=== PATIENT | female | born 1945 | race Caucasian/White ===

== ENCOUNTER 2023-06-19 11:30 | Emergency (ER) | payer MEDICARE, BC, SELFPAY ==
--- NOTE | ~2023-06-19 | XR_ITS ---
XR hand LT min 3V DATE: 06/19/2023 14:06 INDICATION: Redness, swelling, pain for 2 days TECHNIQUE: 3 views of left hand COMPARISON: None FINDINGS: There is soft tissue swelling of the second digit. There is mild polyarticular osteoarthritis, primarily involving the interphalangeal joints, most pron ounced at the distal interphalangeal joint of the third digit. No fracture, dislocation, periosteal reaction or bone destruction or erosive change is noted. IMPRESSION: Soft tissue swelling of second digit Mild polyarticular osteoarthritis Reviewed, dictated and finalized at location B.
--- NOTE | ~2023-06-19 | XR_ITS ---
XR finger 2nd LT min 2V DATE: 06/19/2023 14:06 INDICATION: Redness, swelling, pain for 2 days TECHNIQUE: 3 views of the left second digit COMPARISON: None FINDINGS: There is diffuse left second digit soft tissue swelling. No fracture, dislocation, periosteal reaction or bone destruction, erosive change or chondrocalcinosi s is noted. No radiopaque soft tissue foreign body or subcutaneous emphysema. Mild osteoarthritis at the second digit proximal and distal interphalangeal joints. IMPRESSION: Nonspecific soft tissue swelling of the second digit Mild osteoarthritis at the proximal and distal interphalangeal joints Reviewed, dictated and finalized at location B.
[2023-06-19 11:54] VITALS: BP 136/90; PULSE 82; RESP 18; TEMP 36.1; O2SAT 100
[2023-06-19 13:58] VITALS: BP 134/88; PULSE 88; RESP 19; O2SAT 100
--- NOTE | 2023-06-19 15:14 | ED.SKABFB ---
HPI - Skin/Abscess/Foreign Bdy General Chief complaint: Skin/Abscess/Foreign Body Stated complaint: R hand infection Time Seen by Provider: 06/19/23 14:05 History of Present Illness HPI narrative: This is a 77-year-old female with history gout who presents to the emergency department complaining left 2nd finger swelling and redness. The patient states this is present for the past 2 days with extension to the base of the finger over the of the hand. Patient states he was seen by her primary care doctor recently who said she had elevated uric acid and risk for recurrence of gout. Patient denies fevers, and chills or loss of sensation in the hand. She describes her pain dull, rated 3 to 4/10. The patient is right handed. She denies recent trauma or known breakage of her skin. Related Data Allergies Allergy/AdvReac Type Severity Reaction Status Date / Time Penicillins AdvReac Rash Verified 06/19/23 11:31 Review of Systems Review of Systems: CONSTITUTIONAL: Denies fever, chills, or sweats. CARDIOVASCULAR: Denies chest pain, palpitations, or edema. RESPIRATORY: Denies cough or dyspnea. GASTROINTESTINAL: Denies abdominal pain, nausea, vomiting, or diarrhea. GENITOURINARY: Denies dysuria or hematuria. SKIN: Denies rash or itching. MUSCULOSKELETAL: Left 2nd finger swelling and redness Denies back pain, joint pain, or myalgia. NEUROLOGIC: Denies headache, numbness, dizziness, or weakness. PSYCHIATRIC: Denies anxiety or depression. PMFSH Past Medical History Medical History Gout Surgical History Surgical History No significant past surgical history Social History Social History Smoking status: Never smoker Alcohol intake: never Substance use: never Exam Narrative: GENERAL: Well-developed, well-nourished, and in no acute distress. HEAD: Normocephalic, atraumatic. EYES: PERRLA and EOMI. CHEST: Clear to auscultation. No respiratory distress. No wheezes rales or rhonchi HEART: Regular rate and rhythm. No murmur heard. Normal peripheral pulses. EXTREMITIES: swelling and erythema noted extending over the entire left 2nd digit with some swelling over the dorsal aspect of the hand. At the distal medial aspect the 2nd finger, there is an area of white, solid tissue just under the epidermis, consistent with tophus. Range of motion of the left 2nd finger limited by pain and swelling. Otherwise normal range of motion of all extremities. No edema. SKIN: Warm, dry, no rash. NEURO: Alert and oriented x3. No focal deficit. Moving all 4 limbs spontaneously PSYCH: Normal mood and affect. Course Course Emergency Course: 15:15 - the patient's exam appears consistent with gouty flare, however cellulitis cannot be ruled out. X-ray shows soft tissue swelling without fracture or changes concerning for osteomyelitis. Will discharge with oral antibiotics, recommendation for continued use NSAIDs and follow-up with the patient's primary care doctor. I discussed the findings and recommendations with the patient. Discussed return and emergency precautions including signs/symptoms of septic arthritis and neurovascular compromise. The patient voiced understanding and agreement with the plan. All questions answered to her satisfaction. Vital Signs Vital signs: Vital Signs Temperature 97.0 F L 06/19/23 11:54 Pulse Rate 82 06/19/23 11:54 Respiratory Rate 18 06/19/23 11:54 Blood Pressure 136/90 06/19/23 11:54 Pulse Oximetry 100 06/19/23 11:54 Temperature 97.0 F L 06/19/23 11:54 Pulse Rate 88 06/19/23 13:58 Respiratory Rate 19 06/19/23 13:58 Blood Pressure 134/88 06/19/23 13:58 Pulse Oximetry 100 06/19/23 13:58 MDM - Skin/Abscess/Foreign Bdy MDM Narrative Medical decision making narrative: plan: Imaging, antibiotics, prim
== END 2023-06-19 15:28 | disposition home or self-care (01) ==
PROVIDERS: Emergency Provider Preventive Medicine Aerospace Medicine
DX: L03.114 Cellulitis of left upper limb (principal); M10.9 Gout, unspecified; M19.042 Primary osteoarthritis, left hand
CPT/HCPCS: 73130; 73140; 99283

== ENCOUNTER 2023-09-28 12:05 | Outpatient (CLI) | payer MEDICARE, BC, SELFPAY ==
--- NOTE | ~2023-09-28 | MM_ITS ---
EXAMINATION: MM screening anali BI w miranda HISTORY: Screening mammogram TECHNIQUE: Craniocaudal and mediolateral oblique 3-D tomosynthesis images were obtained and synthetic 2-D images were generated. CAD analysis was submitted and interpreted. COMPARISON: No prior mammogram is available for comparison at this institution. BREAST PARENCHYMAL COMPOSITION:Dense: The breasts are heterogeneously dense, which may obscure small masses. FINDINGS: No suspicious mass, calcification, or architectural distortion are identified in either devon ast to suggest malignancy. There has been no suspicious interval change. IMPRESSION: No mammographic evidence of malignancy. Recommend routine screening mammography in one year. BI-RADS Category 1: Negative Reviewed, dictated and finalized at location .
== END 2023-09-28 12:06 ==
PROVIDERS: PCP Family Medicine Sports Medicine; Visit Provider Family Medicine Sports Medicine
DX: Z12.31 Encounter for screening mammogram for malignant neoplasm of breast (principal)
CPT/HCPCS: 77063; 77067

== ENCOUNTER 2024-09-16 07:20 | Emergency (ER) | payer MEDICARE, BC, SELFPAY ==
--- NOTE | ~2024-09-16 | CT_ITS ---
CT head without contrast Indication: Head injury Technique: Serial scans were obtained through the brain without the administration of contrast. Dose reduction technique was used on this scan by utilizing automated exposure control and iterative recon struction technique. The dose-length product (DLP) was 605.33 mGy-cm. Findings: There is no evidence of intracranial hemorrhage, mass lesion, or acute infarct. The ventri cles and subarachnoid spaces are dilated, consistent with mild atrophy. Low attenuation regions are seen within the periventricular white matter bilaterally, likely representing changes from chronic mi crovascular ischemic disease. There is no evidence of edema, mass effect or midline shift. The visu alized paranasal sinuses and mastoid air cells are clear. Prominence soft tissues swelling/hematoma p resent in the left parietal scalp. Impression: No intracranial hemorrhage, mass, or acute infarct. Atrophy and chronic white matter changes, as above. Soft tissues 1/hematoma in the left parietal scalp. Reviewed, dictated and finalized at location . Impression: No intracranial hemorrhage, mass, or acute infarct. Atrophy and chronic white matter changes, as above. Soft tissues 1/hematoma in the left parietal scalp.
--- NOTE | ~2024-09-16 | CT_ITS ---
Noncontrast CT scan of the cervical spine Technique: Multiple contiguous axial [address] images of the cervical spine were obtained and rec onstructed in 2D sagittal and coronal planes on the acquisition scanner. Dose reduction technique was used on this scan by utilizing automated exposure control, adjustment of the mA and/or kV according to patient size. The dose-length product (DLP) was 141.42 mGy-cm. Clinical History: Pain Findings: No acute fracture seen. There is 3 mm retrolisthesis of C5 over C6. There is severe degener ative disc narrowing at C5-C6. There is probable right facet arthropathy at C2-C3 with right neural f oraminal narrowing. There is disc ossify complex at C3-C4 and probable left facet arthropathy. Probab le mild bilateral neural foraminal narrowing at this level. There is left facet arthropathy and left neural foraminal narrowing at C4-C5. There is disc osteophyte complex with bilateral neural foraminal narrowing and moderate canal stenosis at C5 and C6. No prevertebral soft tissue swelling. Impression: No fracture. 3 mm retrolisthesis of C5 over C6. Degenerative spondylosis, as above, moderate to severe C5-C6. Reviewed, dictated and finalized at location . Impression: No fracture. 3 mm retrolisthesis of C5 over C6. Degenerative spondylosis, as above, moderate to severe C5-C6.
--- OUTSIDE RECORDS SUMMARY | 2024-09-16 07:23 | XMS_ITS | Referral Summary ---
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 Name Role Phone Arthur Prado MD Unavailable [phone] Keli Hatch MD Unavailable [phone] Lavonne Willis NP Primary Care Provider Encounters Date Type Department Care Team Description 07/19/2024 Results Follow-Up [facility] Primary Care at [address] [id number] Lavonne Willis NP Dexa Axial Skeleton Bone Density 1 or 2 Site 07/18/2024 10:53 AM CDT - 07/18/2024 11:59 PM CDT Hospital Encounter [facility] [address] [place], [place] [id number] Encounter for osteoporosis screening in asymptomatic postmenopausal patient Discharge Disposition: Discharge to home or self care 06/16/2024 Orders Only [facility] Primary Care at [address] [address] Lavonne Willis NP 06/16/2024 Results Follow-Up [facility] Primary Care at [address] [address] Lavonne Willis NP Hemoglobin A1c, Lipid panel, CBC with auto differential, Additional followed-up results: 5 from Last 3 Months Allergies Active Allergy Reactions Criticality Noted Date Comments Amlodipine Besylate Edema Medium 07/26/2014 Penicillins Nausea only,Rash High 07/16/2011 Other reaction(s): Rash Rivaroxaban Other (See comments) Low 11/16/2017 Vaginal bleeding Medications albuterol HFA (PROVENTIL HFA,VENTOLIN HFA,PROAIR HFA) 90 mcg/actuation inhaler Inhale 2 puffs as needed 05/27/19 18 Active atorvastatin (LIPITOR) 10 mg tablet Take 1 tablet (10 mg total) by mouth daily 05/03/19 14 Active fluocinonide (LIDEX) 0.05 % ointment 0.05 application (deactivated) daily as needed 08/17/19 22 Active losartan (COZAAR) 50 mg tablet Take 1 tablet (50 mg total) by mouth 2 (two) times a day Active multivitamin tablet Take 1 tablet by mouth daily Active pen needle, diabetic 31 gauge x 5/16 needle USE AND DISCARD 1 PEN NEEDLE DAILY 12/07/19 21 Active FreeStyle Denia 14 Day Sensor kitIndications :Type 2 diabetes mellitus with diabetic polyneuropathy , with long-term current use of insulin (HCC),Long-ter m insulin use (HCC) USE 1 SENSOR SUBCUTANEOUSLY( VIA WEARABLE INJECTOR) EVERY 14 DAYS. 6 kit 03/20/20 23 Active clotrimazole-b etamethasone (LOTRISONE) cream 02/06/20 23 Active furosemide (LASIX) 20 mg tabletIndicati ons:Chronic diastolic heart failure (HCC) TAKE 1 TABLET TWICE A DAY 180 tablet 1 07/22/19 24 Active doxycycline (PERIOSTAT) 20 mg tablet Take 1 tablet (20 mg total) by mouth 2 (two) times a day Active sotaloL (BETAPACE) 80 mg tablet TAKE 1 TABLET TWICE A DAY 180 tablet 3 12/28/19 24 Active spironolactone (ALDACTONE) 50 mg tablet TAKE 1 TABLET BY MOUTH EVERY DAY 90 tablet 1 01/12/20 24 Active gabapentin (NEURONTIN) 100 mg capsule Take 1 capsule (100 mg total) by mouth nightly 90 capsule 1 02/23/20 24 Active collagen, hydrolysate, bovine, (collagen, hydr, bovine,, bulk,) 100 % powder Active tirzepatide (Mounjaro) 7.5 mg/0.5 mL pen injector injection Inject 0.5 mL (7.5 mg total) under the skin every 7 days 6 mL 1 06/16/19 25 Active ergocalciferol (VITAMIN D) 50,000 unit capsule Take 1 capsule (50,000 Units total) by mouth once a week 12 capsule 4 06/17/19 25 026 Active allopurinoL (ZYLOPRIM) 100 mg tabletIndicati ons:Elevated uric acid in blood,History of gout TAKE 1 TABLET BY MOUTH EVERY DAY 90 tablet 1 07/29/19 25 Active Eliquis 5 mg tablet TAKE 1 TABLET BY MOUTH TWICE A DAY 180 tablet 2 08/31/19 25 Active apixaban (Eliquis) 5 mg tablet TAKE 1 TABLET BY MOUTH TWICE A DAY 180 tablet 2 11/02/19 24 025 Discontinued Active Problems Problem Noted Date Diagnosed Date Paroxysmal atrial fibrillation 04/19/2024 Type 2 diabetes mellitus wit h stage 3a chronic kidney disease, without long-term current use of insulin 04/17/2023 Assessment & Plan (06/15/2024 12:33 PM CDT): Updated labs ordered For the past 1 month, pt has been taking the 7.5 mg weekly dose of Mounjaro--this has better tolerated than the 10 mg dose with GI side effects and low glucose readings per pt's CGM. Will continue the 7.5 mg weekly dose, refill sent. Assessment & Plan (10/12/2023 6:49 PM CDT): Chronic. Stable. Diabetes is controlled. Continue current medication. Monitor renal function. Avoid dehydration Assessment & Plan (04/17/2023 1:37 PM BOX SPRING MAKER): Chronic. Mild stage 3a chronic kidney disease on labs. Avoid dehydration and limit nonsteroidal anti-inflammatory drugs. Slightly better than last year Psoriasis 04/13/2023 Assessment & Plan (10/12/2023 6:48 PM CDT): Chronic. Seeing Dermatology. She reports that they may not think it is something alternative to psoriasis. ? Lichen planus. 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 She has not like her current business mail entry clerk and would like to see a alternative specialists. 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 Bleeding precautions recommended. I see no reason she can not hold her anticoagulation for upcoming foot surgery Assessment & Plan (04/13/2023 8:22 AM BOX SPRING MAKER): Chronic. Bleeding precautions reviewed Chronic diastolic heart failure 01/24/2019 Assessment & Plan (06/15/2024 12:35 PM CDT): Asymptomatic in office, continues follow up with Cardiology. Assessment & Plan (10/12/2023 6:46 PM CDT): Chronic. Compensated. Continue Lasix once daily with the additional 2nd tab daily as needed. Assessment & Plan (04/13/2023 9:46 AM BOX SPRING MAKER): Chronic. Relatively compensated. On Spironolactone, losartan lasix. Sees cardiology. Some ankle edema since started on scar oz Type 2 diabetes mellitus with hyperlipidemia Assessment & Plan (06/15/2024 12:35 PM CDT): Continues Atorvastatin, updated labs ordered. No side effects reported. Assessment & Plan (10/12/2023 6:47 PM CDT): Chronic. Controlled. Continue atorvastatin Assessment & Plan (04/13/2023 8:21 AM BOX SPRING MAKER): Chronic. Tolerates atorvastatin. LDL goal <70. Continue rx and adjust as needed. Encouraged healthy diet, exercise Atrial fibrillation with controlled ventricular response 11/16/2017 Overview (04/13/2023): Managed by cardiology. On Sotalol and NOAC. Denies bleeding concerns. Rate controlled. Patient notes increased episodes of AFib recently causing some fatigue. She plans to discuss with her network manager Assessment & Plan (06/15/2024 12:34 PM CDT): Rate controlled in office, pt asymptomatic. Continuing follow up with Cardiology and current medication regimen. Assessment & Plan (10/12/2023 6:45 PM CDT): Chronic. Relatively controlled. Continue sotalol, Eliquis. Monitor History of gout 11/16/2017 Assessment & Plan (10/12/2023 6:46 PM CDT): Chronic. No recent flares. Continue allopurinol. Check uric acid to assess inappropriately suppressed Assessment & Plan (04/13/2023 8:23 AM BOX SPRING MAKER): Hx of 1 prior episode. Not currently on prophylaxis. Check uric acid Hypertension associated with diabetes 09/15/2016 Assessment & Plan (06/15/2024 12:35 PM CDT): BP stable in office, no changes to medication today. Updated labs ordered Assessment & Plan (10/12/2023 6:46 PM CDT): Chronic. HTN controlled. Cont prescription Rx as indicated in HPI under HTN diagnosis. Low sodium diet (DASH or Mediterranean), exercise, wt loss (if over weight) discussed Assessment & Plan (04/13/2023 8:21 AM BOX SPRING MAKER): Chronic. HTN controlled. Cont prescription Rx. Low sodium diet (DASH or Mediterranean), exercise, wt loss (if over weight) discussed Type 2 diabetes mellitus with diabetic polyneuro shital 11/22/2015 Assessment & Plan (10/12/2023 6:47 PM CDT): Diabetes, type II: chronic condition. Control: good. Prescription medications: Continue Mounjaro. Okay to stay off insulin given very good control without it Diabetes Education Reviewed diabetic disease process, standards of care, and possible disease complications I have discussed the following steps for improving diabetic care: diabetic diet with healthy meals that are low salt, low fat, high fiber daily 30 minutes of exercise (45-60 minutes if trying to lose weight) Encouraged to loose weight if overweight/obese, or maintain a healthy body weight if BMI normal home glucose monitoring and goals (fast 70-130 and 2 hr PP <180) HgA1C goal <7% If checking home bp, goal less than 140/90 on average, even better if <130/85 Check feet daily for sores, dryness, cracking; use daily moisturizer if needed and invest in good shoes See eye doctor at least once per year and have report sent to us Assessment & Plan (04/13/2023 9:46 AM BOX SPRING MAKER): Chronic. Was transitioned from Ozempic to mounjaro since last visit. Up to date on eye exam. Encouraged DM diet, exercise, healthy lifestyle. Patient notes that blood sugars have significantly improved with Mounjaro. She has decreased her long- acting insulin to 15 units most days. Will have her stay at 15 units daily. If needed we can gradually increase the Mounjaro and attempt to wean the long-acting insulin. If she has issues with low blood sugar she will let me know. Hemoglobin A1c in office today was very good at 6 Diabetes Education Reviewed diabetic disease process, standards of care, and possible disease complications I have discussed the following steps for improving diabetic care: diabetic diet with healthy meals that are low salt, low fat, high fiber daily 30 minutes of exercise (45-60 minutes if trying to lose weight) Encouraged to loose weight if overweight/obese, or maintain a healthy body weight if BMI normal home glucose monitoring and goals (fast 70-130 and 2 hr PP <180) HgA1C goal <7% If checking home bp, goal less than 140/90 on average, even better if <130/85 Check feet daily for sores, dryness, cracking; use daily moisturizer if needed and invest in good shoes See eye doctor at least once per year and have report sent to us Resolved Problems Problem Noted Date Diagnosed Date Resolved Date Other thrombophilia 07/02/2022 04/13/19 Long-term insulin use 06/23/20222023 Assessment & Plan (04/13/2023 8:23 AM BOX SPRING MAKER): Chronic. For diabetes. Adjust as needed Diverticulosis of large inte nicky without hemorrhage 09/15/2016 03/06/2022 Immunizations Immunization Administration Dates Next Due COVID-19 mRNA ([email or web address]) 0.3 m L (30 mcg) vaccine (12 years and up) 01/12/2023 Flucelvax Influenza Quad 01/31/2015 Influenza Virus Vaccine Trivalent Mdv 06/15/2019 ,01/20/2018 Influenza, Quad, Adjuvantated, Intramuscular ,02/12/2022 Influenza, Quadrivalent, Hig h Dose, Preservative Free, Intrr 01/27/2020 Influenza, Trivalent, High D ose, Split, Preservative Free, Intramuscular 05/11/2017,03/11/2016 Influenza, Unspecified 02/04/2021 Pneumococcal Conjugate PCV 13 01/31/2015 Pneumococcal Polysaccharide PPV23 10/29/2012 ZOSTER LIVE 10/29/2012 ZOSTER Recombinant 07/27/2020,01/27/2020 Social History Tobacco Use Types Packs/Day Years Used Date Smoking Tobacco: Never Passive Smoke Exposure: Past Smokeless Tobacco: Never Comments:Mother was heavy sm oker AUDIT-C Answer Date Recorded Q1: How often do you have a drink containing alc ohol? 2-3 times a week 10/12/2023 Q2: How many drinks containi ng alcohol do you have on a typical day when you are drinking? 3 or 4 10/12/2023 Q3: How often do you have si x or more drinks on one occasion? Weekly 10/12/2023 PHQ-2 Answer Date Recorded PHQ-2 Total Score (If total score is 3 or more points, staff should administer the PHQ-9) 0 06/15/2024 Personal Safety Answer Date Recorded Have you ever been in or are you currently in a harmful physical or emotional relationship or is someone making you feel afraid or unsafe? Denies 05/18/2023 Comments No Sex and Gender Information Value Date Recorded Sex Assigned at Not on file Legal Sex Female 11:04 AM BOX SPRING MAKER Gender Identity Not on file Sexual Orientation Not on file Last Filed Vital Signs Vital Sign Reading Time Taken Comments Blood Pressure 110/58 06/15/2024 11:16 AM CDT Pulse 50 06/15/2024 11:16 AM CDT Temperature 36.6 C (97.8 F) 06/15/2024 11:16 AM CDT Respiratory Rate 18 04/19/2024 11:44 AM BOX SPRING MAKER Oxygen Saturation 99% 06/15/2024 11:16 AM CDT Inhaled Oxygen Concentration - - Weight 55.8 kg (123 lb) 06/15/2024 11:16 AM CDT Height 160 cm (5' 3) 06/15/2024 11:16 AM CDT Body Mass Index 21.79 06/15/2024 11:16 AM CDT Plan of Treatment Not on file Procedures Procedure Name Priority Date/Time Associated Diagnosis Comments DEXA AXIAL SKELETON BONE DENSITY 1 OR MORE SITES Schedule Routine, Read Routine (OP Routine) 07/18/2024 11:16 AM CDT Encounter for osteoporosis screening in asymptomatic postmenopausal patient EGFR Routine 06/15/2024 12:04 PM CDT Type 2 diabetes mellitus with stage 3a chronic kidney disease, without long-term current use of insulin (HCC) HEMOGLOBIN A1C Routine 06/15/2024 12:04 PM CDT Type 2 diabetes mellitus with stage 3a chronic kidney disease, without long-term current use of insulin (HCC) LIPID PANEL Routine 06/15/2024 12:04 PM CDT Type 2 diabetes mellitus with stage 3a chronic kidney disease, without long-term current use of insulin (HCC) HM DIABETES EYE EXAM Routine 10/15/2023 9:46 AM CDT COLONOSCOPY 05/18/2023 10:58 AM BOX SPRING MAKER ALBUMIN CREATININE RATIO, URINE Routine 04/13/2023 9:02 AM BOX SPRING MAKER Type 2 diabetes mellitus with diabetic polyneuropathy, with long-term current use of insulin (HCC) Essential hypertension Routine physical examination HEPATITIS C ANTIBODY Routine 02/10/2023 8:40 AM BOX SPRING MAKER Encounter for long-term (current) use of other medications from Last 3 Months or Most Recently Relevant to Health Maintenance Results * Dexa Axial Skeleton Bone Density 1 or 2 Site (07/18/2024 11:16 AM CDT) Anatomical Region Laterality Modality Body N/A Mammography 07/18/2024 6:59 PM CDT Narrative 07/18/2024 7:00 PM CDT EXAM DESCRIPTION: DEXA AXIAL SKELETON BONE DENSITY 1 OR MORE SITES REASON FOR STUDY: 78 y/o year old F with given history of: osteoporosis, Osteoporosis screening 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 CLINICAL INFORMATION: Current height: 63 inches Maximum height: 63 inches Weight: 123 pounds Risk factors: Postmenopausal, asthma or emphysema COMPARISON: None available FINDINGS: AP LUMBAR SPINE L1-L4: Total BMD is 1.031 g/cm2 T-score is -0.1 LEFT HIP: Total BMD is 1.097 g/cm2 T-score is 1.3 Femoral neck BMD is 0.753 g/cm2 T-score is -0.9 FRAX: FRAX not reported due to T-scores of hip, femoral neck and/or spine being at or above -1.0 (Normal). IMPRESSION: Normal bone mass. REFERENCE: Bone mineral density: T-Score: Normal (T-score above or = -1.0) Low bone mass (T-score between -1.0 and -2.5) replaces the previously used term osteopenia Osteoporosis (T-score = or below -2.5) Z-Score: Within the expected range for age (Z-score above -2.0) Below the expected range for age (Z-score is -2.0 or below) Please see below follow up recommendations. Medical evaluation for secondary causes of low bone mineral density may be appropriate. FRAX is a World Health Organization validated fracture risk assessment tool that calculates a person's 10 year probability of a major osteoporosis related fracture and hip fracture. According to the National Osteoporosis Foundation guidelines, postmenopausal women and men age 50 or older with low bone mass and a 10 year probability of a major osteoporosis related fracture = or greater than 20% or a 10 year probability of a hip fracture = or greater than 3% should be considered for pharmacological treatment for the prevention of osteoporosis. For further information, including treatment recommendations, please refer to the 2019 ISCD Official Positions (http://www.iscd.org) and the NOF's Clinician's Guide to Prevention and Treatment of Osteoporosis (http://www.nof.org/professionals/clinical-guidelines) THIS IS AN ELECTRONICALLY VERIFIED FINAL REPORT 07/18/2024 7:00 PM - Electronically signed by Arthur May M.D. MF: AMY Report ID: [id number] Reading Location: [place] [address] Procedure Note Arthur May MD - 07/18/2024 EXAM DESCRIPTION: DEXA AXIAL SKELETON BONE DENSITY 1 OR MORE SITES REASON FOR STUDY: 78 y/o year old F with given history of:osteoporosis, Osteoporosis screening Physician Office Secretary/Model: [employer] A (S/N [id number]) Facility LSC value of 0.022 for the AP spine, 0.027 for the femur, and0.023 for the forearm. CLINICAL INFORMATION: Current height: 63 inches Maximum height: 63 inches Weight: 123 pounds Risk factors: Postmenopausal, asthma or emphysema COMPARISON: None available FINDINGS: AP LUMBAR SPINE L1-L4: Total BMD is 1.031 g/cm2 T-score is -0.1 LEFT HIP: Total BMD is 1.097 g/cm2 T-score is 1.3 Femoral neck BMD is 0.753 g/cm2 T-score is -0.9 FRAX: FRAX not reported due to T-scores of hip, femoral neck and/or spine beingat or above -1.0 (Normal). IMPRESSION: Normal bone mass. REFERENCE: Bone mineral density: T-Score: Normal (T-score above or = -1.0) Low bone mass (T-score between -1.0 and -2.5) replaces thepreviously used term osteopenia Osteoporosis (T-score = or below -2.5) Z-Score: Within the expected range for age (Z-score above -2.0) Below the expected range for age (Z-score is -2.0 or below) Please see below follow up recommendations. Medical evaluation forsecondary causes of low bone mineral density may be appropriate. FRAX is a World Health Organization validated fracture risk assessmenttool that calculates a person's 10 year probability of a major osteoporosisrelated fracture and hip fracture. According to the National OsteoporosisFoundation guidelines, postmenopausal women and men age 50 or older with low bonemass and a 10 year probability of a major osteoporosis related fracture = or greater than 20% or a 10 year probability of a hip fracture = or greaterthan 3% should be considered for pharmacological treatment for the preventionof osteoporosis. For further information, including treatment recommendations, please referto the 2019 ISCD Official Positions (http://www.iscd.org) and the NOF's Clinician's Guide to Prevention and Treatment of Osteoporosis (http://www.nof.org/professionals/clinical-guidelines) THIS IS AN ELECTRONICALLY VERIFIED FINAL REPORT 07/18/2024 7:00 PM - Electronically signed by Arthur May M.D. MF: AMY Report ID: [id number] Reading Location: [place] [address] Lavonne Willis NP IMG DXA PROCEDURES Final Result * eGFR (06/15/2024 12:04 PM CDT) eGFR 71 >=60 mL/min/1. 73 m2 Comment: Interpretive Data Reference Interval Normal >/= 90 mL/min/1.73m2 Mildly decreased* 60 - 89 mL/min/1.73m2 Mildly to moderately decreased 45 - 59 mL/min/1.73m2 Moderately to severely decreased 30 - 44 mL/min/1.73m2 Severely decreased 15 - 29 mL/min/1.73m2 Kidney Failure < 15 mL/min/1.73m2 *Relative to young adult level Estimated glomerular filtration rate is determined by the 2020 CKD-EPI equation recommended by the National Kidney Foundation (A Unifying Approach to GFR Estimation: Recommendations of the NKF-ASK Task Force on Reassessing the Inclusion of Race in Diagnosing Kidney Disease, JASN 2020). The CKD-EPI equation should not be used for patients with unstable renal function and has not been validated in children and those over 70. Current interpretive data was last reviewed 2021. Blood 06/15/2024 12:0 4 PM CDT 06/15/2024 8:22 PM CDT us Lavonne Willis NP LAB BLOOD ORDERABLES Final Resul t Performing Organization Address City/[facility] Co de Phone Number STACY VINNY [address] [place] [address] * Hemoglobin A1c (06/15/2024 12:04 PM CDT) Hgb A1C 5.3 4.0 - 5.6 % Estimated Average Glucose 105 mg/dL STACY CASILLAS Comment: The ADA recommends reporting an estimated Average Glucose (eAG) with all Hemoglobin A1c results using the equation derived from a study of 507 normal and diabetic adults. Minority populations were underrepresented and children were not included. (Diabetes Care 31:8728-9655, 2008). The eAG is not equivalent to a fasting glucose. Blood 06/15/2024 12:0 4 PM CDT 06/15/2024 8:18 PM CDT us Lavnone Willis NP LAB BLOOD ORDERABLES Final Resul t Performing Organization Address [facility] Co de Phone Number STACY CASILLAS [address] [place] [address] * Lipid panel (06/15/2024 12:04 PM CDT) Cholesterol 188 30 - 199 mg/dL Comment: Interpretive Data Ages < or = 19 years Acceptable: <170 mg/dL Borderline high: 170-199 mg/dL High: >or= 200 mg/dL Ages > or = 20 years Desirable: <200 mg/dL Borderline high: 200-239 mg/dL High: >or= 240 mg/dL Literature References: 1. Expert Panel on Integrated Guidelines for Cardiovascular Health and Risk Reduction in Children and Adolescents. Pediatrics 2011;128:S213 2. NCEP Expert Panel. Circulation 2004;110:227 Current Interpretive Data was last revised on 2017. Triglycerides 147 <=149 mg/dL STACY Comment: Interpretive Data Ages < or = 9 years Acceptable: <75 mg/dL Borderline high: 75-99 mg/dL High: >or= 100 mg/dL Ages 10 to 20 years Acceptable: <90 mg/dL Borderline high: 90-129 mg/dL High: >or= 130 mg/dL Ages > or = 20 years Desirable: <150 mg/dL Borderline high: 150-199 mg/dL High: 200-499 mg/dL Very high: >or= 499 mg/dL Literature References: 1. Expert Panel on Integrated Guidelines for Cardiovascular Health and Risk Reduction in Children and Adolescents. Pediatrics 2011;128:S213 2. NCEP Expert Panel. Circulation 2004;110:227 Current Interpretive Data was last revised on 2017. HDL 44 >=40 mg/dL STACY Comment: Interpretive Data Ages < or = 19 years Acceptable: >45 mg/dL Borderline low: 40-45 mg/dL Low: <40 mg/dL Ages > or = 20 years Desirable: >or= 60 mg/dL Low: <40 mg/dL Literature References: 1. Expert Panel on Integrated Guidelines for Cardiovascular Health and Risk Reduction in Children and Adolescents. Pediatrics 2011;128:S213 2. NCEP Expert Panel. Circulation 2004;110:227 Current Interpretive Data was last revised on 2017. LDL, calculated 118 <=129 mg/dL STACY Comment: Interpretive Data Ages < or = 19 years Acceptable: <110 mg/dL Borderline high: 110-129 mg/dL High: >or= 130 mg/dL Ages > or = 20 years Optimal: <100 mg/dL Near optimal: 100-129 mg/dL Borderline high: 130-159 mg/dL High: >160 mg/dL Calculated using the Campoverde LDL-C estimating equation. This equation was implemented on 2023. Prior to this date LDL-C was estimated using the Friedewald equation. Literature References: 1. Expert Panel on Integrated Guidelines for Cardiovascular Health and Risk Reduction in Children and Adolescents. Pediatrics 2011;128:S213 2. NCEP Expert Panel. Circulation 2004;110:227 3. Campoverde M et al. LIZZY Cardiol. 2020 July 28;5(5):540-548. doi: 10.1001/jamacardio.2020.0013 Current Interpretive Data was last revised on 2023. Non-HDL Cholesterol 144 mg/dL STACY Comment: Interpretive Data Ages < or = 19 years Acceptable: <120 mg/dL Borderline high: 120-144 mg/dL High: >145 mg/dL Ages > or = 20 years When triglycerides are >200 mg/dL, Non-HDL cholesterol is a secondary target of therapy with treatment goals that are 30 mg/dL greater than the LDL cholesterol target. Literature References: 1. Expert Panel on Integrated Guidelines for Cardiovascular Health and Risk Reduction in Children and Adolescents. Pediatrics 2011;128:S213 2. NCEP Expert Panel. Circulation 2004;110:227 Current Interpretive Data was last revised on 2017. [facility] 4 [facility] Blood 06/15/2024 12:0 4 PM CDT 06/15/2024 8:18 PM CDT Lavonne Willis NP LAB BLOOD ORDERABLES Final Resul t STACY [address] [place] [address] * DIABETES EYE EXAM (10/15/2023 9:46 AM CDT) SCRIBED DIABETIC DILATED EYE EXAM Normal us Emily Allen MD HEALTH MAINTENANCE Fin al Result * Colonoscopy (05/18/2023 10:58 AM [facility]) Anatomical Region Laterality Modality Other Narrative Procedure Note Jesika Dukes MD - 05/18/2023 10:58 AM CST - [facility] Endoscopy Lab Patient Name: Snow Mark Procedure Date: 05/18/2023 10:58 AM Date of : 1945 Admit Type: Outpatient Age: 77 Gender: Female Note Status: Finalized Attending MD: Jesika Dukes M.D. Procedure Date: 05/18/2023 Procedure: Colonoscopy Indications: Surveillance: Personal history of piecemeal removalof adenoma on last colonoscopy (less than 1 year ago), Last colonoscopy: March 2022 Providers: Jesika Dukes M.D., SALEEM Porter (Anesthesia Staff), Nikole Capone RN, [place], Photographic Restorer Referring MD: Emily Allen M.D. Medicines: Monitored Anesthesia Care Complications: No immediate complications. Estimated Blood Loss: Estimated blood loss was minimal. Procedure: Pre-Anesthesia Assessment: - Prior to the procedure, a History and Physicalwas performed, and patient medications and allergieswere reviewed. The patient is competent. The risks and benefits of the procedure and the sedation optionsand risks were discussed with the patient. Allquestions were answered and informed consent was obtained. Patient identification and proposed procedure were verified by the physician, the nurse and the woodworking bench carpenter in the procedure room. Mental Status Examination: normal. Airway Examination: normal oropharyngeal airway and neck mobility. Respiratory Examination: clear to auscultation. CV Examination: normal. Prophylactic Antibiotics: The patient doesnot require prophylactic antibiotics. Prior Anticoagulants: The patient has taken noanticoagulant or antiplatelet agents. ASA Grade Assessment: III -A patient with severe systemic disease. Afterreviewing the risks and benefits, the patient was deemed in satisfactory condition to undergo the procedure.The anesthesia plan was to use monitored anesthesiacare (MAC). Immediately prior to administration of medications, the patient was re-assessed foradequacy to receive sedatives. The heart rate, respiratory rate, oxygen saturations, blood pressure, adequacyof pulmonary ventilation, and response to care were monitored throughout the procedure. The physical status of the patient was re-assessed after the procedure. - The risks and benefits of the procedure and the sedation options and risks were discussed with the patient. All questions were answered and informed consent was obtained. After I obtained informed consent, the scope was passed under direct vision. Throughout theprocedure, the patient's blood pressure, pulse, and oxygen saturations were monitored continuously. The scopewas passed under direct vision. The Colonoscope was introduced through the anus and advanced to the the cecum, identified by appendiceal orifice andileocecal valve. The colonoscopy was performed without difficulty. The patient tolerated the procedurewell. The quality of the bowel preparation was adequate.The bowel preparation used was Clenpiq via split dose instruction. Findings: A 1 mm polyp was found in the sigmoid colon. The polyp was sessile.The polyp was removed with a jumbo cold forceps. Resection and retrieval were complete. Estimated blood loss was minimal. Multiple small and large-mouthed diverticula were found in the left colon. A tattoo was seen in the descending colon. A post-polypectomy scarwas found at the tattoo site. There was no evidence of residual polyptissue. The exam was otherwise without abnormality on direct and retroflexion views. Impression: - One 1 mm polyp in the sigmoid colon, removed witha jumbo cold forceps. Resected and retrieved. - Diverticulosis in the left colon. - A tattoo was seen in the descending colon. A post-polypectomy scar was found at the tattoo site. There was no evidence of residual polyp tissue. - The examination was otherwise normal on directand retroflexion views. Recommendation: - High fiber diet. - Await pathology results. - Repeat colonoscopy is not recommended. Procedure Code(s): --- Professional --- 65676, Colonoscopy, flexible; with biopsy, singleor multiple Diagnosis Code(s): --- Professional --- D12.5, Benign neoplasm of sigmoid colon Z09, Encounter for follow-up examination after completed treatment for conditions other than malignant neoplasm Z86.010, Personal history of colonic polyps K57.30, Diverticulosis of large intestine without perforation or abscess without bleeding CPT copyright 2020 [employer]. All rights reserved. The codes documented in this report are preliminary and upon board setter reviewmay be revised to meet current compliance requirements. Electronically signed by Jesika Dukes M.D. Jesika Dukes M.D. 05/18/2023 11:38:32 AM Number of Addenda: 0 Note Initiated On: 05/18/2023 10:58 AM Jesika Dukes MD ENDOSCOPY PROCEDURES Fi nal Result * Albumin Creatinine Ratio, Urine (04/13/2023 9:02 AM [facility]) Albumin Ur 17.0 mg/L STACY CASILLAS Comment: Interpretive Data No reference range established. Current interpretive data was last revised 2018. Creatinine Ur 197.8 mg/dL STACY CASILLAS Comment: Interpretive Data No reference range established. Current interpretive data was last revised 2018. Albumin Creatinine Ratio, Ur 9 1 - 29 mg/g STACY CASILLAS Urine 04/13/2023 9:02 AM [facility] 04/13/2023 2:42 PM [facility] Emily Allen MD LAB URINE ORDERABLES F inal Result [facility] [address] [place] [address] * Hepatitis C antibody Blood (02/10/2023 8:40 AM [facility]) Hep C Ab Nonreactive Nonreactive STACY CASILLAS Comment: Interpretive Data Nonreactive: Antibodies to HCV not detected. Does NOT exclude the possibility of recent exposure to HCV. Equivocal: Equivocal for HCV antibodies. Supplemental molecular testing will be automatically performed to determine infection status in accordance with current CDC screening recommendations. Reactive: Positive for HCV antibodies. This may represent current or past HCV infection. Supplemental molecular testing will be automatically performed to determine current infection status in accordance with current CDC screening recommendations. Interpretive data was last revised on 2019. Blood 02/10/2023 8:40 AM [facility] 02/10/2023 3:01 PM [facility] Narrative STACY - 02/10/2023 4:14 PM [facility] Fax results to Dr Bess Patel [phone] eBss Patel NP LAB MICROBIOLOGY - GENERAL ORDER LIZZY Final Result [facility] [address] [place] [address] from Last 3 Months or Most Recently Relevant to Health Maintenance Insurance [facility] MEDICARE MEDICARE 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
--- OUTSIDE RECORDS SUMMARY | 2024-09-16 07:23 | XMS_ITS | Patient Health Record ---
Author Organization [facility] Address [address] [facility] [address] [place] [address] Care Team Providers Care Newborn Hearing Screener Name Role Phone Connor Yee Unavailable [phone] Reason For Referral No Information Medications Medication SIG (Take, Route, Frequency, Duration) Notes Start Date End Date Status VICTOZA 3-RANJITH 0.6 mg/0.1 mL (18 mg/3 mL) Subcutaneous *please review for potential update for e-prescription and drug interaction check* Active Lancets use as directed MISCELLANEOUS *please review for potential update for e-prescription and drug interaction check* Active Spironolactone 50 MG take 1 tablet (50 mg) by oral route once daily Oral 1 Active Sotalol HCl 80 MG take 1 tablet (80 mg) by oral route 2 times per day Oral 2 Active Multi-Vitamin take 1 tablet by oral route daily Oral 1 *please review for potential update for e-prescription and drug interaction check* Active Losartan Potassium 50 MG take 1 tablet (50 mg) by oral route once daily Oral 1 Active Lipitor 10 MG take 1 tablet (10 mg) by oral route once daily at bedtime Oral 1 Active Lasix 40 MG take 1 tablet (40 mg) by oral route once daily Oral 1 Active Plan Of Treatment No Information Insurance Providers Payer Name Payer Address Payer Phone Subscriber Number Group Number Insured Name Patient Relationship to Insured Coverage Start Date Coverage End Date [employer] of [place] J5 [address] [place] [address] [id number] Snow Calix Self - patient is the insured 3 [employer] [place] [employer] [facility] [address] [place] [address] [id number] Snow Calix Self - patient is the insured 7 Medical (General) History Surgical History Surgery Date(Month/Year) Tonsillectomy: - [employer] 10/10/2016; Tubal ligation: - [employer] 10/10/2016; 0 10/10/2016 wisdom teeth: - [employer] 10/10/2016;
--- OUTSIDE RECORDS SUMMARY | 2024-09-16 07:23 | XMS_ITS | Clinical Summary ---
Author Organization [facility] Address [address] [address] Phone Care Team Providers Care Bariatric Surgeon Name Role Phone Arthur Prado MD Unavailable [phone] Keli Hatch MD Unavailable [phone] Lavonne Willis NP Primary Care Provider [phone] Allergies Active Allergy Reactions Criticality Noted Date [...] dehydration Assessment & Plan (04/17/2023 1:37 PM [employer]): Chronic. Mild stage 3a chronic kidney disease on labs. Avoid dehydration and limit nonsteroidal anti-inflammatory drugs. Slightly better than last year Psoriasis 04/13/2023 Assessment & Plan (10/12/2023 6:48 PM CDT): Chronic. Seeing Dermatology. She reports that they may not think it is something alternative to psoriasis. ? Lichen planus. She will continue working with a bliss press operator Assessment & Plan (04/13/2023 9:47 AM [employer]): Patient on scar oz with benefit but does not like side effects. She has not like her current bliss press operator and would like to see a alternative specialists. 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 Bleeding precautions recommended. I see no reason she can not hold her anticoagulation for upcoming foot surgery Assessment & Plan (04/13/2023 8:22 AM [employer]): Chronic. Bleeding precautions reviewed Chronic diastolic heart failure 01/24/2019 Assessment & Plan (06/15/2024 12:35 PM CDT): Asymptomatic in office, continues follow up with Cardiology. Assessment & Plan (10/12/2023 6:46 PM CDT): Chronic. Compensated. Continue Lasix once daily with the additional 2nd tab daily as needed. Assessment & Plan (04/13/2023 9:46 AM [employer]): Chronic. Relatively compensated. On Spironolactone, losartan lasix. Sees cardiology. Some ankle edema since started on scar oz Type 2 diabetes mellitus with hyperlipidemia Assessment & Plan (06/15/2024 12:35 PM CDT): Continues Atorvastatin, updated labs ordered. No side effects reported. Assessment & Plan (10/12/2023 6:47 PM CDT): Chronic. Controlled. Continue atorvastatin Assessment & Plan (04/13/2023 8:21 AM [employer]): Chronic. Tolerates atorvastatin. LDL goal <70. Continue rx and adjust as needed. Encouraged healthy diet, exercise Atrial fibrillation with controlled ventricular response 11/16/2017 Overview (04/13/2023): Managed by cardiology. On Sotalol and NOAC. Denies bleeding concerns. Rate controlled. Patient notes increased episodes of AFib recently causing some fatigue. She plans to discuss with her hand therapist Assessment & Plan (06/15/2024 12:34 PM CDT): [...] suppressed Assessment & Plan (04/13/2023 8:23 AM [employer]): Hx of 1 prior episode. Not currently [...] discussed Assessment & Plan (04/13/2023 8:21 AM [employer]): Chronic. HTN controlled. Cont prescription Rx. Low [...] us Assessment & Plan (04/13/2023 9:46 AM [employer]): Chronic. Was transitioned from Ozempic to mounjaro [...] Date Resolved Date Other thrombophilia 07/02/2022 04/13/19 24 Long-term insulin use 06/23/20222023 Assessment & Plan (04/13/2023 8:23 AM [employer]): Chronic. For diabetes. Adjust as needed Diverticulosis of large inte nicky without hemorrhage 09/15/2016 03/06/2022 Encounters Date Type Department Care Team Description 07/19/2024 Results Follow-Up [facility] Primary Care at [address] [address] Lavonne Willis, TANESHA Dexa Axial Skeleton Bone Density 1 or 2 Site 07/18/2024 10:53 AM CDT - 07/18/2024 11:59 PM CDT Hospital Encounter [facility] Medical Office Bldg [address] [place] [address] Encounter for osteoporosis screening in asymptomatic postmenopausal patient Discharge Disposition: Discharge to home or self care 06/16/2024 Orders Only [facility] Primary Care at [address] [address] Lavonne Willis NP 06/16/2024 Results Follow-Up [facility] Primary Care at [address] [address] Lavonne Willis, SCALLOP BINDER Hemoglobin A1c, Lipid panel, CBC with auto differential, Additional followed-up results: 5 from Last 3 Months Immunizations Immunization Administration Dates Next Due COVID-19 mRNA ([employer]flakes[employer]) 0.3 m L (30 mcg) vaccine (12 [...] 10/29/2012 ZOSTER LIVE 10/29/2012 ZOSTER Recombinant 07/27/2020,01/27/2020 Surgical History Surgery Date Site/Laterality Comments TONSILLECTOMY KNEE ARTHROSCOPY Right COLONOSCOPY 09/27/2021 - 10/27/2021 COLONOSCOPY 04/08/2022 hx of piecemeal polyp removal in september 2021 TUBAL LIGATION COLONOSCOPY 05/18/2023 Routine. Last colonoscopy 03/2022 and found 12 mm polyp FOOT SURGERY Medical History Medical History Date Comments Diverticulosis of large intestine without hemorr louise 09/15/2016 Type 2 diabetes mellitus with diabetic polyneuro shital (HCC) 11/22/2015 Hyperlipidemia 01/24/2019 Gout 11/16/2017 Essential hypertension 09/15/2016 Chronic diastolic heart failure (HCC) 01/24/2019 Atrial fibrillation with controlled ventricular response (HCC) 11/16/2017 Anemia Arthritis Asthma Chronic bronchitis (HCC) Family History Medical History Relation Name Comments Cancer Brother 1 Leonard Lopez Throat cancer Brother 1 Leonard Lopez Colon cancer Brother 2 Nael Lopez Drug abuse Brother 2 Nael Lopez Rectal cancer Brother 3 Sanju Alvarado Diabetes Father Richard Lopez Obesity Father Richard Lopez COPD Mother Shantell lobo Relation Name Status Comments Brother 1 Leonard Lopez Brother 2 Nael Lopez Brother 3 Sanju Alvarado Father Richard Lopez Mother Shantell Alvarado Social History Tobacco Use Types Packs/Day Years [...] on file Legal Sex Female 11:04 AM [employer] Gender Identity Not on file Sexual Orientation Not on file Obstetrics History Last Filed Vital Signs Vital Sign Reading Time Taken Comments Blood Pressure 110/58 06/15/2024 11:16 AM CDT Pulse 50 06/15/2024 11:16 AM CDT Temperature 36.6 C (97.8 F) 06/15/2024 11:16 AM CDT Respiratory Rate 18 04/19/2024 11:44 AM [employer] Oxygen Saturation 99% 06/15/2024 11:16 AM CDT Inhaled Oxygen Concentration - - Weight 55.8 kg (123 lb) 06/15/2024 11:16 AM CDT Height 160 cm (5' 3) 06/15/2024 11:16 AM CDT Body Mass Index 21.79 06/15/2024 11:16 AM CDT Plan of Treatment Health Maintenance Due Date Last Done Comments DTaP/Tdap/Td Vaccine (1 - Tdap) 1956 Covid-19 Vaccine (6 - 2023-2 5 season) 2023 01/12/2023, 02/12/2022, 02/04/2021, Additional history exists Albumin Creatinine Ratio, Urine 04/13/2024 , 03/07/2022 Foot Exam 04/13/2024 04/13/2023, 03/30, 03/07/2022 Well Visit 65+ 04/13/2024 04/13/2023 Dilated Eye Exam 10/14/2024 10/15/2023, 10/24/2022 Influenza Vaccine (Season Ended) 2024 01/12/2023, 02/12/2022, 02/04/2021, Additional history exists Hemoglobin A1C 12/16/2024 06/15/2024, 09/27, 04/13/2023, Additional history exists Depression Screening 06/15/2025 06/15/2024, 10/12/2023, 04/13/2023, Additional history exists Fall Risk Assessment 06/15/2025 06/15/2024, 10/12/2023, 05/18/2023, Additional history exists Lipid Panel 06/15/2025 06/15/2024, 03/30, 03/07/2022, Additional history exists eGFR 06/15/2025 06/15/2024, 03/30, 02/10/2023, Additional history exists Osteoporosis Screening-Bone Density Scan 07/18/2029 07/18/2024, 12/15/2017, 12/15/2017 Pneumococcal vaccine 65+ Completed 01/31/2015, 04/2012 Zoster Vaccine Completed 07/27/2020, 12/30, 10/29/2012 Hepatitis B Screening Completed 02/10/2023 Hepatitis C Screening Discontinued 02/10/2023 Colon Cancer Screening-Colonoscopy Discontinued 05/18/2023, 04/08/2022 Procedures Procedure Name Priority Date/Time Associated Diagnosis [...] 9:46 AM CDT COLONOSCOPY 05/18/2023 10:58 AM [employer] ALBUMIN CREATININE RATIO, URINE Routine 04/13/2023 9:02 AM [employer] Type 2 diabetes mellitus with diabetic polyneuropathy, with long-term current use of insulin (HCC) Essential hypertension Routine physical examination HEPATITIS C ANTIBODY Routine 02/10/2023 8:40 AM [employer] Encounter for long-term (current) use of other [...] with given history of: osteoporosis, Osteoporosis screening Brush Machine Setter/Model: 99 Fahrenheit A (S/N [id number]) Facility LSC value of 0.022 for the [...] Arthur May M.D. MF: AMY Report ID: [id number] Reading Location: [address] Note Arthur May MD - 07/18/2024 EXAM DESCRIPTION: DEXA AXIAL SKELETON BONE DENSITY 1 OR MORE SITES REASON FOR STUDY: 78 y/o year old F with given history of:osteoporosis, Osteoporosis screening Brush Machine Setter/Model: Hologic Musical Sneakers A (S/N [id number]) Facility LSC value of 0.022 for the [...] Arthur May M.D. MF: AMY Report ID: [id number] Reading Location: [place] [address] us Lavonne Willis NP IMG DXA PROCEDURES Final Result * eGFR (06/15/2024 12:04 PM CDT) Pathologist [facility] eGFR 71 >=60 mL/min/1. 73 m2 Comment: [...] LAB BLOOD ORDERABLES Final Resul t [facility]ACY [facility]ILLAS [address] Department [place] [address] * Hemoglobin A1c (06/15/2024 12:04 PM CDT) Pathologist [facility] Hgb A1C 5.3 4.0 - 5.6 % Estimated Average Glucose 105 mg/dL [facility] CASILLAS Comment: The ADA recommends reporting an estimated Average Glucose (eAG) with all Hemoglobin A1c results using the equation derived from a study of 507 normal and diabetic adults. Minority populations were underrepresented and children were not included. (Diabetes Care 31:3167-0930, 2008). The eAG is not equivalent to a fasting glucose. Blood 06/15/2024 12:0 4 PM CDT 06/15/2024 8:18 PM CDT us Lavonne Willis SCALLOP BINDER LAB BLOOD ORDERABLES Final Resul t STACY CASILLAS [address] Department [place] [address] * Lipid panel (06/15/2024 12:04 PM CDT) [...] on 2017. Triglycerides 147 <=149 mg/dL [facility]ACY CASILLAS Comment: Interpretive Data Ages < or = [...] on 2017. HDL 44 >=40 mg/dL [facility] CASILLAS Comment: Interpretive Data Ages < or = [...] mg/dL High: >160 mg/dL Calculated using the Gilles LDL-C estimating equation. This equation was implemented on 2023. Prior to this date LDL-C was estimated using the Friedewald equation. Literature References: 1. Expert Panel on Integrated Guidelines for Cardiovascular Health and Risk Reduction in Children and Adolescents. Pediatrics 2011;128:S213 2. NCEP Expert Panel. Circulation 2004;110:227 3. Gilles M et al. LIZZY Cardiol. 2020 July [...] last revised on 2017. Chol/HDL ratio 4 STACY Blood 06/15/2024 12:0 4 PM CDT 06/15/2024 8:18 PM CDT us Lavonne Willis SCALLOP BINDER LAB BLOOD ORDERABLES Final Resul t STACY CASILLAS [address] Department [place] [address] * DIABETES EYE EXAM (10/15/2023 9:46 AM CDT) SCRIBED DIABETIC DILATED EYE EXAM Normal us Emily Allen MD HEALTH MAINTENANCE Fin al Result * Colonoscopy (05/18/2023 10:58 AM [employer]) Anatomical Region Laterality Modality Other Narrative Procedure Note Jesika Dukes MD - 05/18/2023 10:58 AM CST [facility] Endoscopy Lab Patient Name: Snow Mark Procedure [...] Dukes M.D., SALEEM Porter (Anesthesia Staff), Nikole Capnoe RN, Bre, Orientation & Mobility Specialist Referring MD: Emily Allen M.D. Medicines: Monitored [...] by the physician, the nurse and the highway patrol pilot in the procedure room. Mental Status Examination: [...] not recommended. Procedure Code(s): --- Professional --- 68262, Colonoscopy, flexible; with biopsy, singleor multiple Diagnosis Code(s): --- Professional --- D12.5, Benign neoplasm of sigmoid colon Z09, Encounter for follow-up examination after completed treatment for conditions other than malignant neoplasm Z86.010, Personal history of colonic polyps K57.30, Diverticulosis of large intestine without perforation or abscess without bleeding CPT copyright 2020 [employer]. All rights reserved. The codes documented in this report are preliminary and upon blood bank manager reviewmay be revised to meet current compliance requirements. Electronically signed by Jesika Dukes M.D. Jesika Dukes M.D. 05/18/2023 11:38:32 AM Number of Addenda: 0 Note Initiated On: 05/18/2023 10:58 AM Jesika Dukes MD ENDOSCOPY PROCEDURES Fi nal Result * Albumin Creatinine Ratio, Urine (04/13/2023 9:02 AM [employer]) Albumin Ur 17.0 mg/L [facility] Comment: Interpretive Data No reference range established. Current interpretive data was last revised 2018. Creatinine Ur 197.8 mg/dL [facility] Comment: Interpretive Data No reference range established. Current interpretive data was last revised 2018. Albumin Creatinine Ratio, Ur 9 1 - 29 mg/g [facility] Urine 04/13/2023 9:02 AM [employer] 04/13/2023 2:42 PM [employer] Emily Allen MD LAB URINE ORDERABLES F inal Result Performing Organization Address [facility] Co de Phone Number [facility] [address] [employer] [place], [place] [id number] * Hepatitis C antibody Blood (02/10/2023 8:40 AM [employer]) Hep C Ab Nonreactive Nonreactive [facility] Comment: Interpretive Data Nonreactive: Antibodies to HCV [...] revised on 2019. Blood 02/10/2023 8:40 AM [employer] 02/10/2023 3:01 PM [employer] Narrative [facility] - 02/10/2023 4:14 PM [employer] Fax results to Dr Bess Patel [phone] Bess Patel NP LAB MICROBIOLOGY - GENERAL ORDER LIZZY Final Result Performing Organization Address [facility] Co de Phone Number [facility] [address] [place] [place] [address] from Last 3 Months or Most Recently Relevant to Health Maintenance Insurance [facility] MEDICARE MEDICARE [facility] MEDICARE [facility] Care Teams Bariatric Surgeon Relationship Specialty Start Date End Date Lavonne Willis NP [address] [facility] [address] [place] [address] PCP - General Family Medicine 06/15/24 Arthur Prado MD [address] [facility] [address] [place] [address] Consulting Physician Cardiology 04/13/23 Keli Hatch MD [address] [place] [address] Referring Physician Dermatology 10/12/23 [facility] Audiology 06/15/24
--- OUTSIDE RECORDS SUMMARY | 2024-09-16 07:24 | XMS_ITS | Encounter Summary ---
Author Organization [facility] Address [address] [place] [address] Care Team Providers Care Jacquard Loom Weaver Name Role Phone Arthur Prado MD Unavailable [phone] Keli Hatch MD Unavailable [phone] Lavonne Willis NP Primary Care Provider Encounter Details Date Type Department Care Team (Late st Contact Info) Description 07/19/2024 Results Follow-Up [facility] Primary Care at [address] [address] Lavonne Willis NP [address] [place] [address] [address] [place] [address] Dexa Axial Skeleton Bone Density 1 or 2 Site Social History Tobacco Use Types Packs/Day Years [...] on file 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 Gender Identity Not on file Sexual Orientation Not on file documented as of this encounter Plan of Treatment Not on file documented as of this encounter Visit Diagnoses Not on filedocumented in this encounter Care Teams Jacquard Loom Weaver Relationship Specialty Start Date End Date Lavonne Willis NP [address] [place] [address] PCP - General Family Medicine 06/15/24 Arthur Prado MD [address] [place] [address] Consulting Physician Cardiology 04/13/23 Keli Hatch MD [address] [place] [address] Referring Physician Dermatology 10/12/23 [facility] Audiology 06/15/24 documented as of this encounter
[2024-09-16 07:26] VITALS: BP 137/67; PULSE 66; RESP 16; TEMP 36.5; O2SAT 98
[2024-09-16 07:45] VITALS: BP 130/61; PULSE 66; RESP 15; O2SAT 100
--- NOTE | 2024-09-16 07:48 | ED_ITS ---
HPI - Head Injury General Chief complaint: Head Injury Stated complaint: Fall - HI, head lac Time Seen by Provider: 09/16/24 07:25 History of Present Illness HPI Narrative: About 2 days ago patient fell, hit her head, she is on blood thinners, her found on the ground unconscious, over last 2 days she has continued bleeding from the cut so finally came into the hospital. Related Data Allergies Allergy/AdvReac Type Severity Reaction Status Date / Time Penicillins Allergy Rash Verified 09/16/24 07:33 Review of Systems 2 Review of Systems: All systems reviewed & are unremarkable except as noted in HPI and below PMFSH Past Medical History Medical History Gout Surgical History Surgical History No significant past surgical history Social History Social History Smoking status: Never smoker Alcohol intake: never Substance use: never Exam 2 Narrative: EXAMINATION OF ORGAN SYSTEMS/BODY AREAS: Constitutional: Vital signs per nursing GENERAL:[No acute distress, non-toxic appearing.] HEAD: Active bleeding, blood matted hair; 3 cm laceration to left scalp EYES: EOMI, conjunctiva normal ENT: Hearing grossly intact LUNGS: Nonlabored breathing. HEART: [Regular rate and rhythm] ABD: [Soft], [nontender to palpation] EXT: Normal range of motion SKIN: 3 cm laceration left scalp NEURO: [Alert and oriented x 3. No gross focal sensory or strength deficits.] PSYCH: Normal affect Course Vital Signs Vital signs: Vital Signs Temperature 97.7 F 09/16/24 07:26 Pulse Rate 66 09/16/24 07:26 Respiratory Rate 16 09/16/24 07:26 Blood Pressure 137/67 09/16/24 07:26 Pulse Oximetry 98 09/16/24 07:26 Oxygen Delivery Room Air 09/16/24 07:26 Temperature 97.7 F 09/16/24 07:26 Pulse Rate 62 09/16/24 08:45 Respiratory Rate 16 09/16/24 08:45 Blood Pressure 117/64 09/16/24 08:45 Pulse Oximetry 100 09/16/24 08:45 Oxygen Delivery Room Air 09/16/24 07:26 Procedures Laceration Laceration 1: Date: 09/16/24 Time: 07:50 Site: scalp Side (If applicable): left Size (cm): 3 Description: linear Depth: simple, single layer Local Anesthetic: lidocaine 1% and with epi Amount of anesthesia used (mL): 5 Pre-repair: wound explored and deep structures intact ====== Skin Level ====== Skin layer closed with: tessa Number of sutures: 3 ====== Subcutaneous Layer ====== ====== Muscle Layer ====== ====== Tendon Layer ====== MDM - Head Injury MDM Narrative Medical decision making narrative: Patient presents here after she fell 2 days ago with active head bleeding she is on blood thinners, there was LOC, she denies any pain anywhere On my evaluation she was bleeding steadily, I did place pinpoint pressure on the area I suspect the blood was coming from, while using peroxide and wound cleanser to dissolve dried blood to finally isolate the area bleeding with assistance from nursing/techs, found a 3 cm laceration that is steadily bleeding. Injected with lidocaine plus epi and stapled, finally achieving control of bleeding then applied pressure dressing. Will obtain blood work given the amount of bleeding over last 2 days rule out need for transfusion and obtain CT brain CT thankfully negative. Hemoglobin stable. I did re-evaluate the patient and ended the wrapping and she has no further bleeding from the wound. Findings discussed with patient. Discussed removal of tessa in 7-10 days with return precautions and follow-up instructions to PCP and care instructions. Patient has been at bedside agreeable to plan. Lab Data 09/16/24 07:57 09/16/24 07:57 Labs: Lab Results 09/16/24 Range/Units 07:57 WBC 7.0 (4.5-10.0) K/mm3 RBC 3.69 L (4.2-5.4) M/mm3 Hgb 11.9 L (12.0-15.0) g/dL Hct 36.5 L (37.0-47.0) % MCV 98.9 (80-100) fl MCH 32.2 (26-34) pg MCHC 32.6 (32-36) g/dl RDW 13.3 (11.5-14.5) % Plt Count 262 (150-375) k/mm3 MPV 11.8 H (7.4-10.4) fl Immature Gran % (Auto) 0.4 (0-0.5) % Neut % (Auto) 61.6 (45.5-73.1) % Lymph % (Auto) 24.2 (18.3-44.2) % [place] % (Auto) 10.7 H (2.6-8.5) % Eos % (Auto) 2.4 (0-4.4) % Baso % (Auto) 0.7 (0.2-1.2) % Lymph # (Auto) 1.70 (0.9-3.2) K/mm3 [place] # (Auto) 0.8 H (0.1-0.6) K/mm3 Eos # (Auto) 0.2 (0-0.3) K/mm3 Baso # (Auto) 0.1 (0.0-0.1) K/mm3 Abs Immat Gran (auto) 0.03 (0.00-0.031) K/mm3 Absolute Neuts (auto) 4.3 (1.3-6.7) K/mm3 Absolute Nucleated RBC 0.000 (0.0-0.012) K/mm3 Nucleated RBC % 0.0 (0.0-0.2) % PT 21.0 H (11.1-14.7) Seconds INR 1.8 APTT 40.6 H (22.3-36.8) Seconds Sodium 140 (137-145) mmol/L Potassium 3.6 (3.4-5.0) mmol/L Chloride 106 (98-107) mmol/L Carbon Dioxide 26 (22-30) mmol/L Anion Gap 8 (4-12) mmol/L BUN 16 (7-17) mg/dL Creatinine 0.89 (0.7-1.0) mg/dL Estim Creat Clear Calc Not Reportable Estimated GFR > 60 (59 - ) Glucose 128 H (65-110) mg/dL Calcium 9.3 (8.4-10.2) mg/dL Critical Care Time Critical Care Time Critical Care Time: Yes Total Critical Care Time: 31 Discharge Plan Discharge Clinical Impression: Laceration of head, Head injury Patient Disposition: Home Condition: Stable Instructions: Head Injury (ED), Staple Care (ED) Additional Instructions: You have 3 tessa in your left scalp which need to be removed in 7-10 days. You can always return to the emergency room for any further issues. Patient Language: Latvian Prescriptions: No Action sulfamethoxazole-trimethoprim 800-160 mg tablet 1 tablet PO Q12H Qty: 20 0RF cephalexin 500 mg capsule 500 mg PO Q6H 10 Days Qty: 40 0RF Follow-up/Referrals: Alba,Lavonne Tapia, WET ROLLER [Primary Care Provider] - 2 Days
--- OUTSIDE RECORDS SUMMARY | 2024-09-16 07:52 | XMS_ITS | Clinical Summary ---
Author Organization [facility] Address [address] [address] Phone Care Team Providers Care Heel Nail Rasper Name Role Phone Arthur Prado MD Unavailable [phone] Keli Hatch MD Unavailable [phone] Lavonne Willis NP Primary Care Provider [phone] Allergies Active Allergy Reactions Criticality Noted Date [...] dehydration Assessment & Plan (04/17/2023 1:37 PM ELECTRICAL ACCESSORIES ASSEMBLER): Chronic. Mild stage 3a chronic kidney disease on labs. Avoid dehydration and limit nonsteroidal anti-inflammatory drugs. Slightly better than last year Psoriasis 04/13/2023 Assessment & Plan (10/12/2023 6:48 PM CDT): Chronic. Seeing Dermatology. She reports that they may not think it is something alternative to psoriasis. ? Lichen planus. She will continue working with a teaching dietitian Assessment & Plan (04/13/2023 9:47 AM ELECTRICAL ACCESSORIES ASSEMBLER): Patient on scar oz with benefit but does not like side effects. She has not like her current teaching dietitian and would like to see a alternative specialists. 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 Bleeding precautions recommended. I see no reason she can not hold her anticoagulation for upcoming foot surgery Assessment & Plan (04/13/2023 8:22 AM ELECTRICAL ACCESSORIES ASSEMBLER): Chronic. Bleeding precautions reviewed Chronic diastolic heart failure 01/24/2019 Assessment & Plan (06/15/2024 12:35 PM CDT): Asymptomatic in office, continues follow up with Cardiology. Assessment & Plan (10/12/2023 6:46 PM CDT): Chronic. Compensated. Continue Lasix once daily with the additional 2nd tab daily as needed. Assessment & Plan (04/13/2023 9:46 AM ELECTRICAL ACCESSORIES ASSEMBLER): Chronic. Relatively compensated. On Spironolactone, losartan lasix. Sees cardiology. Some ankle edema since started on scar oz Type 2 diabetes mellitus with hyperlipidemia Assessment & Plan (06/15/2024 12:35 PM CDT): Continues Atorvastatin, updated labs ordered. No side effects reported. Assessment & Plan (10/12/2023 6:47 PM CDT): Chronic. Controlled. Continue atorvastatin Assessment & Plan (04/13/2023 8:21 AM ELECTRICAL ACCESSORIES ASSEMBLER): Chronic. Tolerates atorvastatin. LDL goal <70. Continue rx and adjust as needed. Encouraged healthy diet, exercise Atrial fibrillation with controlled ventricular response 11/16/2017 Overview (04/13/2023): Managed by cardiology. On Sotalol and NOAC. Denies bleeding concerns. Rate controlled. Patient notes increased episodes of AFib recently causing some fatigue. She plans to discuss with her director sales and trade marketing Assessment & Plan (06/15/2024 12:34 PM CDT): [...] suppressed Assessment & Plan (04/13/2023 8:23 AM ELECTRICAL ACCESSORIES ASSEMBLER): Hx of 1 prior episode. Not currently [...] discussed Assessment & Plan (04/13/2023 8:21 AM ELECTRICAL ACCESSORIES ASSEMBLER): Chronic. HTN controlled. Cont prescription Rx. Low [...] us Assessment & Plan (04/13/2023 9:46 AM ELECTRICAL ACCESSORIES ASSEMBLER): Chronic. Was transitioned from Ozempic to mounjaro [...] 06/23/20222023 Assessment & Plan (04/13/2023 8:23 AM ELECTRICAL ACCESSORIES ASSEMBLER): Chronic. For diabetes. Adjust as needed Diverticulosis of large inte nicky without hemorrhage 09/15/2016 03/06/2022 Encounters Date Type Department Care Team Description 07/19/2024 Results Follow-Up [facility] Medical Group Primary Care at [address] [address] Lavonne Willis, TANESHA Dexa Axial Skeleton Bone Density 1 or 2 Site 07/18/2024 10:53 AM CDT - 07/18/2024 11:59 PM CDT Hospital Encounter [facility] Medical Office Bldg [address] [place] [address] Encounter for osteoporosis screening in asymptomatic postmenopausal patient Discharge Disposition: Discharge to home or self care 06/16/2024 Orders Only [facility] Medical Group Primary Care at [address] [address] Lavonne Willis NP 06/16/2024 Results Follow-Up [facility] Primary Care at [address] [address] Lavonne Willis, COMMERCIAL CREDIT OFFICER Hemoglobin A1c, Lipid panel, CBC with auto differential, Additional followed-up results: 5 from Last 3 Months Immunizations Immunization Administration Dates Next Due COVID-19 mRNA ([employer]) 0.3 m L (30 mcg) vaccine (12 [...] on file Legal Sex Female 11:04 AM ELECTRICAL ACCESSORIES ASSEMBLER Gender Identity Not on file Sexual Orientation Not on file Obstetrics History Last Filed Vital Signs Vital Sign Reading Time Taken Comments Blood Pressure 110/58 06/15/2024 11:16 AM CDT Pulse 50 06/15/2024 11:16 AM CDT Temperature 36.6 C (97.8 F) 06/15/2024 11:16 AM CDT Respiratory Rate 18 04/19/2024 11:44 AM ELECTRICAL ACCESSORIES ASSEMBLER Oxygen Saturation 99% 06/15/2024 11:16 AM CDT [...] 9:46 AM CDT COLONOSCOPY 05/18/2023 10:58 AM ELECTRICAL ACCESSORIES ASSEMBLER ALBUMIN CREATININE RATIO, URINE Routine 04/13/2023 9:02 AM ELECTRICAL ACCESSORIES ASSEMBLER Type 2 diabetes mellitus with diabetic polyneuropathy, with long-term current use of insulin (HCC) Essential hypertension Routine physical examination HEPATITIS C ANTIBODY Routine 02/10/2023 8:40 AM ELECTRICAL ACCESSORIES ASSEMBLER Encounter for long-term (current) use of other [...] with given history of: osteoporosis, Osteoporosis screening Order Control Clerk Blood Bank/Model: [employer] A (S/N [id number]) Facility LSC value of 0.022 for the [...] Arthur May M.D. MF: AMY Report ID: [id number] Reading Location: [address] Note Arthur May MD - 07/18/2024 EXAM DESCRIPTION: DEXA AXIAL SKELETON BONE DENSITY 1 OR MORE SITES REASON FOR STUDY: 78 y/o year old F with given history of:osteoporosis, Osteoporosis screening Order Control Clerk Blood Bank/Model: Hologic F[employer] A (S/N [id number]) Facility LSC value of 0.022 for the [...] Arthur May M.D. MF: AMY Report ID: [id number] Reading Location: [place] [address] us Lavonne Willis NP IMG DXA PROCEDURES Final Result * eGFR (06/15/2024 12:04 PM CDT) Pathologist [facility] eGFR 71 >=60 mL/min/1. 73 m2 Comment: [...] BLOOD ORDERABLES Final Resul t STACY CASILLAS [address] Department [place] [address] * Hemoglobin A1c (06/15/2024 12:04 PM CDT) Pathologist [facility] Hgb A1C 5.3 4.0 - 5.6 % Estimated Average Glucose 105 mg/dL STACY CASILLAS Comment: The ADA recommends reporting an estimated Average Glucose (eAG) with all Hemoglobin A1c results using the equation derived from a study of 507 normal and diabetic adults. Minority populations were underrepresented and children were not included. (Diabetes Care 31:2292-5770, 2008). The eAG is not equivalent to a fasting glucose. Blood 06/15/2024 12:0 4 PM CDT 06/15/2024 8:18 PM CDT us Lavonne Willis COMMERCIAL CREDIT OFFICER LAB BLOOD ORDERABLES Final Resul t STACY CASILLAS [address] Department [place] [address] * Lipid panel (06/15/2024 12:04 PM CDT) [...] revised on 2017. HDL 44 >=40 mg/dL TSACY CASILLAS Comment: Interpretive Data Ages < or [...] 06/15/2024 8:18 PM CDT us Lavonne Willis COMMERCIAL CREDIT OFFICER LAB BLOOD ORDERABLES Final Resul t STACY CASILLAS [address] Department [place] [address] * DIABETES EYE EXAM (10/15/2023 9:46 AM CDT) SCRIBED DIABETIC DILATED EYE EXAM Normal us Emily Allen MD HEALTH MAINTENANCE Fin al Result * Colonoscopy (05/18/2023 10:58 AM ELECTRICAL ACCESSORIES ASSEMBLER) Anatomical Region Laterality Modality Other Narrative Procedure Note Jesika Dukes MD - 05/18/2023 10:58 AM CST [facility] Endoscopy Lab Patient Name: Snow Mark [...] SALEEM Porter (Anesthesia Staff), Nikole Capone RN, Bre, Medical Billing And Coding Instructor Referring MD: Emily Allen M.D. Medicines: Monitored [...] by the physician, the nurse and the drug room clerk in the procedure room. Mental Status Examination: [...] not recommended. Procedure Code(s): --- Professional --- 87954, Colonoscopy, flexible; with biopsy, singleor multiple Diagnosis Code(s): --- Professional --- D12.5, Benign neoplasm of sigmoid colon Z09, Encounter for follow-up examination after completed treatment for conditions other than malignant neoplasm Z86.010, Personal history of colonic polyps K57.30, Diverticulosis of large intestine without perforation or abscess without bleeding CPT copyright 2020 [employer]. All rights reserved. The codes documented in this report are preliminary and upon aeronautical engineering technologist reviewmay be revised to meet current compliance requirements. Electronically signed by Jesika Dukes M.D. Jesika Dukes M.D. 05/18/2023 11:38:32 AM Number of Addenda: 0 Note Initiated On: 05/18/2023 10:58 AM Jesika Dukes MD ENDOSCOPY PROCEDURES Fi nal Result * Albumin Creatinine Ratio, Urine (04/13/2023 9:02 AM ELECTRICAL ACCESSORIES ASSEMBLER) Albumin Ur 17.0 mg/L [facility] Comment: Interpretive Data No reference range established. Current interpretive data was last revised 2018. Creatinine Ur 197.8 mg/dL [facility] Comment: Interpretive Data No reference range established. Current interpretive data was last revised 2018. Albumin Creatinine Ratio, Ur 9 1 - 29 mg/g [facility] Urine 04/13/2023 9:02 AM ELECTRICAL ACCESSORIES ASSEMBLER 04/13/2023 2:42 PM ELECTRICAL ACCESSORIES ASSEMBLER Emily Allen MD LAB URINE ORDERABLES F inal Result Performing Organization Address [facility] Co de Phone Number [facility] [address] [employer] [place], [place] [id number] * Hepatitis C antibody Blood (02/10/2023 8:40 AM ELECTRICAL ACCESSORIES ASSEMBLER) Hep C Ab Nonreactive Nonreactive [facility] Comment: Interpretive Data Nonreactive: Antibodies to HCV [...] revised on 2019. Blood 02/10/2023 8:40 AM ELECTRICAL ACCESSORIES ASSEMBLER 02/10/2023 3:01 PM ELECTRICAL ACCESSORIES ASSEMBLER Narrative [facility] - 02/10/2023 4:14 PM ELECTRICAL ACCESSORIES ASSEMBLER Fax results to Dr Bess Patel [phone] Bess Patle NP LAB MICROBIOLOGY - GENERAL ORDER LIZZY Final Result Performing Organization Address [facility] Co de Phone Number [facility] [address] [place] [address] from Last 3 Months or Most Recently Relevant to Health Maintenance Insurance [facility] MEDICARE MEDICARE [facility] MEDICARE [facility] Care Teams Heel Nail Rasper Relationship Specialty Start Date End Date Lavonne Willis NP [address] [facility] [address] [place] [address] PCP - General Family Medicine 06/15/24 Arthur Prado MD [address] [facility] [address] [place] [address] Consulting Physician Cardiology 04/13/23 Keli Hatch MD [address] [place] [address] Referring Physician Dermatology 10/12/23 [facility] Audiology 06/15/24
--- OUTSIDE RECORDS SUMMARY | 2024-09-16 07:52 | XMS_ITS | Referral Summary ---
Author Organization [facility] Address [address] [address] Phone Care Team Providers Care Dwarf Tree Grower Name Role Phone Arthur Prado MD Unavailable [phone] Keil Hatch MD Unavailable [phone] Lavonne Willis NP Primary Care Provider Encounters Date Type Department Care Team Description 07/19/2024 Results Follow-Up [facility] Medical Group Primary Care at [address] [address] Lavonne Willis NP Dexa Axial Skeleton Bone Density 1 or 2 Site 07/18/2024 10:53 AM CDT - 07/18/2024 11:59 PM CDT Hospital Encounter [facility] Medical Office [facility] [address] [place], [place] [id number] Encounter for osteoporosis screening in asymptomatic postmenopausal patient Discharge Disposition: Discharge to home or self care 06/16/2024 Orders Only [facility] Medical Group Primary Care at [address] [address] Lavonne Willis NP 06/16/2024 Results Follow-Up [facility] Medical Group Primary Care at [address] [address] Lavonne Willis NP Hemoglobin A1c, [...] dehydration Assessment & Plan (04/17/2023 1:37 PM WHIP SAWYER): Chronic. Mild stage 3a chronic kidney disease on labs. Avoid dehydration and limit nonsteroidal anti-inflammatory drugs. Slightly better than last year Psoriasis 04/13/2023 Assessment & Plan (10/12/2023 6:48 PM CDT): Chronic. Seeing Dermatology. She reports that they may not think it is something alternative to psoriasis. ? Lichen planus. 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 She has not like her current cook room supervisor and would like to see a alternative specialists. 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 Bleeding precautions recommended. I see no reason she can not hold her anticoagulation for upcoming foot surgery Assessment & Plan (04/13/2023 8:22 AM WHIP SAWYER): Chronic. Bleeding precautions reviewed Chronic diastolic heart failure 01/24/2019 Assessment & Plan (06/15/2024 12:35 PM CDT): Asymptomatic in office, continues follow up with Cardiology. Assessment & Plan (10/12/2023 6:46 PM CDT): Chronic. Compensated. Continue Lasix once daily with the additional 2nd tab daily as needed. Assessment & Plan (04/13/2023 9:46 AM WHIP SAWYER): Chronic. Relatively compensated. On Spironolactone, losartan lasix. Sees cardiology. Some ankle edema since started on scar oz Type 2 diabetes mellitus with hyperlipidemia Assessment & Plan (06/15/2024 12:35 PM CDT): Continues Atorvastatin, updated labs ordered. No side effects reported. Assessment & Plan (10/12/2023 6:47 PM CDT): Chronic. Controlled. Continue atorvastatin Assessment & Plan (04/13/2023 8:21 AM WHIP SAWYER): Chronic. Tolerates atorvastatin. LDL goal <70. Continue rx and adjust as needed. Encouraged healthy diet, exercise Atrial fibrillation with controlled ventricular response 11/16/2017 Overview (04/13/2023): Managed by cardiology. On Sotalol and NOAC. Denies bleeding concerns. Rate controlled. Patient notes increased episodes of AFib recently causing some fatigue. She plans to discuss with her corporate communications specialist Assessment & Plan (06/15/2024 12:34 PM CDT): [...] suppressed Assessment & Plan (04/13/2023 8:23 AM WHIP SAWYER): Hx of 1 prior episode. Not currently [...] discussed Assessment & Plan (04/13/2023 8:21 AM WHIP SAWYER): Chronic. HTN controlled. Cont prescription Rx. Low [...] us Assessment & Plan (04/13/2023 9:46 AM WHIP SAWYER): Chronic. Was transitioned from Ozempic to mounjaro [...] 06/23/20222023 Assessment & Plan (04/13/2023 8:23 AM WHIP SAWYER): Chronic. For diabetes. Adjust as needed Diverticulosis of large inte nicky without hemorrhage 09/15/2016 03/06/2022 Immunizations Immunization Administration Dates Next Due COVID-19 mRNA ([employer]) 0.3 m L (30 mcg) vaccine (12 [...] on file Legal Sex Female 11:04 AM WHIP SAWYER Gender Identity Not on file Sexual Orientation Not on file Last Filed Vital Signs Vital Sign Reading Time Taken Comments Blood Pressure 110/58 06/15/2024 11:16 AM CDT Pulse 50 06/15/2024 11:16 AM CDT Temperature 36.6 C (97.8 F) 06/15/2024 11:16 AM CDT Respiratory Rate 18 04/19/2024 11:44 AM WHIP SAWYER Oxygen Saturation 99% 06/15/2024 11:16 AM CDT [...] 9:46 AM CDT COLONOSCOPY 05/18/2023 10:58 AM WHIP SAWYER ALBUMIN CREATININE RATIO, URINE Routine 04/13/2023 9:02 AM WHIP SAWYER Type 2 diabetes mellitus with diabetic polyneuropathy, with long-term current use of insulin (HCC) Essential hypertension Routine physical examination HEPATITIS C ANTIBODY Routine 02/10/2023 8:40 AM WHIP SAWYER Encounter for long-term (current) use of other [...] with given history of: osteoporosis, Osteoporosis screening Varnisher Plasticoater/Model: [facility] A (S/N [id number]) Facility LSC value of 0.022 for the [...] Arthur May M.D. MF: AMY Report ID: [id number] Reading Location: [place] [address] Procedure Note Arthur May MD - 07/18/2024 EXAM DESCRIPTION: DEXA AXIAL SKELETON BONE DENSITY 1 OR MORE SITES REASON FOR STUDY: 78 y/o year old F with given history of:osteoporosis, Osteoporosis screening Varnisher Pl[employer]oater/Model: [facility] A (S/N [id number]) Facility LSC value of 0.022 for the [...] Arthur May M.D. MF: AMY Report ID: [id number] Reading Location: [place] [address] Lavonne Willis NP IMG DXA PROCEDURES Final [...] ORDERABLES Final Resul t Performing Organization Address City/[facility] Co de Phone Number STACY VINNY [address] [employer] [address] * Hemoglobin A1c (06/15/2024 12:04 PM CDT) Hgb A1C 5.3 4.0 - 5.6 % Estimated Average Glucose 105 mg/dL STACY CASILLAS Comment: The ADA recommends reporting an estimated Average Glucose (eAG) with all Hemoglobin A1c results using the equation derived from a study of 507 normal and diabetic adults. Minority populations were underrepresented and children were not included. (Diabetes Care 31:2673-0490, 2008). The eAG is not equivalent to a fasting glucose. Blood 06/15/2024 12:0 4 PM CDT 06/15/2024 8:18 PM CDT us Lavonne Willis NP LAB BLOOD ORDERABLES Final Resul t Performing Organization Address City/[facility] Co de Phone Number STACY CASILLAS [address] Department [employer] [place] [address] * Lipid panel (06/15/2024 12:04 PM CDT) [...] last revised on 2017. [facility] Blood 06/15/2024 12:0 4 PM CDT 06/15/2024 8:18 PM CDT Lavonne Willis NP LAB BLOOD ORDERABLES Final Resul t STACY [address] Department [place] [address] * DIABETES EYE EXAM (10/15/2023 9:46 AM CDT) SCRIBED DIABETIC DILATED EYE EXAM Normal us Emily Allen MD HEALTH MAINTENANCE Fin al Result * Colonoscopy (05/18/2023 10:58 AM WHIP SAWYER) Anatomical Region Laterality Modality Other Narrative Procedure Note Jesika Dukes MD - 05/18/2023 10:58 AM CST - [facility] Endoscopy Lab Patient Name: Snow [...] Porter (Anesthesia Staff), Nikole Capone RN, [place], Instructor Flying Referring MD: Emily Allen M.D. Medicines: Monitored [...] by the physician, the nurse and the home health aide caregiver in the procedure room. Mental Status Examination: [...] not recommended. Procedure Code(s): --- Professional --- 26370, Colonoscopy, flexible; with biopsy, singleor multiple Diagnosis Code(s): --- Professional --- D12.5, Benign neoplasm of sigmoid colon Z09, Encounter for follow-up examination after completed treatment for conditions other than malignant neoplasm Z86.010, Personal history of colonic polyps K57.30, Diverticulosis of large intestine without perforation or abscess without bleeding CPT copyright 2020 [employer]. All rights reserved. The codes documented in this report are preliminary and upon bmw service technician reviewmay be revised to meet current compliance requirements. Electronically signed by Jesika Dukes M.D. Jesika Dukes M.D. 05/18/2023 11:38:32 AM Number of Addenda: 0 Note Initiated On: 05/18/2023 10:58 AM Jesika Dukes MD ENDOSCOPY PROCEDURES Fi nal Result * Albumin Creatinine Ratio, Urine (04/13/2023 9:02 AM WHIP SAWYER) Albumin Ur 17.0 mg/L [facility]AC[facility] CASILLAS Comment: Interpretive Data No reference range established. Current interpretive data was last revised 2018. Creatinine Ur 197.8 mg/dL STACY CASILLAS Comment: Interpretive Data No reference range established. Current interpretive data was last revised 2018. Albumin Creatinine Ratio, Ur 9 1 - 29 mg/g STACY CASILLAS Urine 04/13/2023 9:02 AM WHIP SAWYER 04/13/2023 2:42 PM WHIP SAWYER Emily Allen MD LAB URINE ORDERABLES F inal Result STACY [address] Department [place] [address] * Hepatitis C antibody Blood (02/10/2023 8:40 AM WHIP SAWYER) Hep C Ab Nonreactive Nonreactive STACY CASILLAS [...] revised on 2019. Blood 02/10/2023 8:40 AM WHIP SAWYER 02/10/2023 3:01 PM WHIP SAWYER Narrative STACY - 02/10/2023 4:14 PM WHIP SAWYER Fax results to Dr Bess Patel [phone] Bess Patel NP LAB MICROBIOLOGY - GENERAL ORDER LIZZY Final Result STACY [address] Department [place] [address] from Last 3 Months or Most Recently Relevant to Health Maintenance Insurance [facility] MEDICARE MEDICARE [facility] MEDICARE [facility] FEDERAL Member Subscriber Plan / Payer (Ef fective 2015-Present) Name:Snow Mrak Relation to Subscriber:Spouse Name:BASIL MARK Address: [address] [place] [id number] Payer ID:[id number] (NAIC) Group ID:[id number] Type: [employer] Address: [address] [place] [id number] Care Teams Dwarf Tree Grower Relationship Specialty Start Date End Date Lavonne Willis NP [address] [facility] [address] [place] [address] PCP - General Family Medicine 06/15/24 Arthur Prado MD [address] [place], [place] [id number] Consulting Physician Cardiology 04/13/23 Keli Hatch MD [address] [place] [address] Referring Physician Dermatology 10/12/23 [facility] Audiology 06/15/24
--- OUTSIDE RECORDS SUMMARY | 2024-09-16 07:52 | XMS_ITS | Encounter Summary ---
Author Organization [facility] Healthcare Address [address] [place] [address] Care Team Providers Care Marketing Programs Specialist Name Role Phone Arthur Prado MD Unavailable [phone] Keli Hatch MD Unavailable [phone] Lavonne Willis NP Primary Care Provider [phone] Encounter Details Date Type Department Care Team (Late st Contact Info) Description 07/19/2024 Results Follow-Up [facility] Medical Group Primary Care at [address] [address] Lavonne Willis NP [address] [place] [address] [address] [place] [address] Dexa Axial Skeleton Bone Density [...] on file Legal Sex Female 11:04 AM LOCKER ROOM CLERK Gender Identity Not on file Sexual Orientation Not on file documented as of this encounter Plan of Treatment Not on file documented as of this encounter Visit Diagnoses Not on filedocumented in this encounter Care Teams Marketing Programs Specialist Relationship Specialty Start Date End Date Lavonne Willis NP [address] [place] [address] PCP - General Family Medicine 06/15/24 Arthur Prado MD [address] [place] [address] Consulting Physician Cardiology 04/13/23 Keli Hatch MD [address] [place] [address] Referring Physician Dermatology 10/12/23 [facility] Audiology 06/15/24 documented as of this encounter
[2024-09-16 08:11] LABS: Basophils Absolute Auto 0.1 K/mm3 (0.0-0.1); Basophils Percent Auto 0.7 % (0.2-1.2); Eosinophils Absolute Auto 0.2 K/mm3 (0-0.3); Eosinophils Percent Auto 2.4 % (0-4.4); Hematocrit 36.5 % (37.0-47.0); Hemoglobin 11.9 g/dL (12.0-15.0); Immature Granulocyte Absolute 0.03 K/mm3 (0.00-0.031); Immature Granulocyte Percent A 0.4 % (0-0.5); Lymphocytes Percent Auto 24.2 % (18.3-44.2); Mean Corpuscular HGB Conc 32.6 g/dl (32-36); Mean Corpuscular Hemoglobin 32.2 pg (26-34); Mean Corpuscular Volume 98.9 fl (80-100); Mean Platelet Volume 11.8 fl (7.4-10.4); Monocytes Absolute Auto 0.8 K/mm3 (0.1-0.6); Monocytes Percent Auto 10.7 % (2.6-8.5); Neutrophils Absolute Auto 4.3 K/mm3 (1.3-6.7); Neutrophils Percent Auto 61.6 % (45.5-73.1); Platelet Count Result 262 k/mm3 (150-375); Red Blood Count 3.69 M/mm3 (4.2-5.4); Red Cell Distribution Width 13.3 % (11.5-14.5)
[2024-09-16 08:15] LABS: INR 1.8
[2024-09-16 08:16] LABS: Anion Gap 8 mmol/L (4-12); Blood Urea Nitrogen 16 mg/dL (7-17); Calcium 9.3 mg/dL (8.4-10.2); Carbon Dioxide 26 mmol/L (22-30); Chloride 106 mmol/L (98-107); Estimated Glomerular Filt Rate > 60; Glucose 128 mg/dL (65-110); Partial Thromboplastin Time 40.6 Seconds (22.3-36.8); Potassium 3.6 mmol/L (3.4-5.0); Sodium 140 mmol/L (137-145)
[2024-09-16 08:30] VITALS: BP 119/68; PULSE 64; RESP 15; O2SAT 100
[2024-09-16 08:45] VITALS: BP 117/64; PULSE 62; RESP 16; O2SAT 100
== END 2024-09-16 08:45 | disposition home or self-care (01) ==
PROVIDERS: Emergency Provider Emergency Medicine; PCP Nurse Practitioner Family
DX: S01.91XA Laceration without foreign body of unspecified part of head, initial encounter (principal); W19.XXXA Unspecified fall, initial encounter
CPT/HCPCS: 12002; 36415; 70450; 72125; 80048; 85025; 85610; 85730; 99284; A9270